=== PATIENT | male | born 1995 | race American Indian/Alaskan Native ===

== ENCOUNTER 2019-10-14 23:41 | Emergency (ER) | payer OTHER ==
[2019-10-14 23:49] VITALS: BP 126/80
--- NOTE | 2019-10-15 02:42 | Ultrasound Report ---
ULTRASOUND SCROTUM INDICATION: right testicle pain. COMPARISON None available. FINDINGS: RIGHT TESTICLE: Normal in size and appearance with expected color flow, measuring 4.2 x 2.2 x 3.0 cm. RIGHT EPIDIDYMIS: A subcentimeter cyst is noted without an additional significant abnormality. LEFT TESTICLE: Normal in size and appearance with expected color flow, measuring 4.2 x 2.3 x 3.0 cm. LEFT EPIDIDYMIS: A subcentimeter cyst is noted without an additional significant abnormality. HYDROCELE: None seen. VARICOCELE: None seen. ADDITIONAL FINDINGS: None. IMPRESSION: 1. No acute sonographic abnormality of the scrotum. Signer Name: Mark Hills MD Signed: 10/15/2019 2:37 AM Workstation Name: [email or web address]
[2019-10-15 03:55] LABS: Bilirubin,Urine NEG (Negative); Blood,Urine NEG (Negative); Color,Urine Straw (Yellow); Protein,Urine <15 mg/dL mg/dL (Negative); Urobilinogen,Urine < 2.0 mg/dL (<2.0); WBC,Urine < 1.0 /HPF (0.0-6.0)
[2019-10-15] MEDS ORDERED: traMADol 50 MG TAB PO ONE (04:18)
[2019-10-15] MEDS ORDERED: levoFLOXacin 500 MG TAB PO ONE (04:18)
[2019-10-15] MEDS ORDERED: ACETAMINOPHEN 500 MG TAB PO ONE (04:18)
[2019-10-15] MEDS ORDERED: ONDANSETRON 4 MG ODT TAB PO ONE (04:19)
[2019-10-15] MEDS ORDERED: LIDOCAINE-MPF (1%) 10 MG/1 ML VIAL 5 ML INFILTRATI ONE (05:43)
--- NOTE | 2019-10-15 05:44 | Emergency Department Report ---
ED Male HPI - General Chief complaint: Urogenital-Male Stated complaint: THROBBING TESTICULAR PAIN, LOWER ABDOMINAL PAIN Source: patient Mode of arrival: Ambulatory Limitations: No Limitations - History of Present Illness Initial comments: Patient is a 24-year-old -[place] male with no past medical history who presents to the ED with complaint of acute onset persistent nontraumatic severe right testicle pain for the last 4 hours. Patient denies dysuria, urinary frequency and urgency, penile discharge, traumatic injury, heavy lifting, swelling or the scrotum, fever, chills, nausea, vomiting, hematuria, or fall. MD Complaint: testicle pain (right) -: Sudden, hour(s) (4) Location: right testicle Radiation: none Severity: moderate Severity scale (0 -10): 6 Quality: aching, sharp Consistency: constant Improves with: none Worsens with: palpation, movement denies other symptoms. denies: discharge, swelling, mass, rash, urinary retention, blood in urine, dysuria, fever, nausea/vomiting, incontinence, other - Related Data Sexually active: Yes Previous Rx's Medication Instructions Recorded Last Taken Type Ciprofloxacin HCl [Ciprofloxacin 500 mg PO Q12HR #20 tab 10/15/19 Unknown Rx TAB] DOXYCYCLINE Hyclate [Vibramycin 100 mg PO Q12HR #20 capsule 10/15/19 Unknown Rx CAP] Ketorolac [Toradol] 10 mg PO Q8H PRN #20 tablet 10/15/19 Unknown Rx Allergies Allergy/AdvReac Type Severity Reaction Status Date / Time No Known Allergies Allergy Unverified 10/15/19 01:29 ED Review of Systems ROS: Stated complaint: THROBBING TESTICULAR PAIN, LOWER ABDOMINAL PAIN Other details as noted in HPI Constitutional: denies: chills, fever Eyes: denies: eye pain, eye discharge, vision change ENT: denies: ear pain, throat pain Respiratory: denies: cough, shortness of breath, wheezing Cardiovascular: denies: chest pain, palpitations Endocrine: no symptoms reported Gastrointestinal: denies: abdominal pain, nausea, diarrhea Genitourinary: testicular pain (right). denies: urgency, dysuria Musculoskeletal: denies: back pain, joint swelling, arthralgia Skin: denies: rash, lesions Neurological: denies: headache, weakness, paresthesias Psychiatric: denies: anxiety, depression Hematological/Lymphatic: denies: easy bleeding, easy bruising ED Past Medical Hx - Past Medical History Previous Medical History?: No - Surgical History Past Surgical History?: No - Social History Smoking Status: Never Smoker Substance Use Type: None - Medications Home Medications: Home Medications Medication Instructions Recorded Confirmed Last Taken Type Ciprofloxacin HCl [Ciprofloxacin 500 mg PO Q12HR #20 tab 10/15/19 Unknown Rx TAB] DOXYCYCLINE Hyclate [Vibramycin 100 mg PO Q12HR #20 capsule 10/15/19 Unknown Rx CAP] Ketorolac [Toradol] 10 mg PO Q8H PRN #20 tablet 10/15/19 Unknown Rx ED Physical Exam - General Limitations: No Limitations General appearance: alert, in no apparent distress - Head Head exam: Present: atraumatic, normocephalic, normal inspection - Eye Eye exam: Present: normal appearance, PERRL, EOMI - ENT ENT exam: Present: normal exam, normal orophraynx, mucous membranes moist, TM's normal bilaterally, normal external ear exam - Neck Neck exam: Present: normal inspection, full ROM - Respiratory Respiratory exam: Present: normal lung sounds bilaterally. Absent: respiratory distress, wheezes, rhonchi, chest wall tenderness, accessory muscle use, decreased breath sounds - Cardiovascular Cardiovascular Exam: Present: regular rate, normal rhythm, normal heart sounds. Absent: systolic murmur, diastolic murmur, rubs, gallop - GI/Abdominal GI/Abdominal exam: Present: soft, normal bowel sounds. Absent: tenderness, guarding, rebound, hyperactive bowel sounds, hypoactive bowel sounds, organomegaly - Rectal Rectal exam: Present: deferred - exam: Present: testicular tenderness (right), circumcision. 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 Absent: erythema, swelling, lesions, lacerations, ecchymosis, bleeding - Extremities Exam Extremities exam: Present: normal inspection, full ROM, normal capillary refill - Back Exam Back exam: Present: normal inspection, full ROM. Absent: tenderness - Neurological Exam Neurological exam: Present: alert, oriented X3, CN II-XII intact, normal gait, reflexes normal - Psychiatric Psychiatric exam: Present: normal affect, normal mood - Skin Skin exam: Present: warm, dry, intact, normal color. Absent: rash ED Course Vital Signs 10/14/19 23:47 Temperature 98.4 F Pulse Rate 71 Respiratory 18 Rate Blood Pressure 126/80 O2 Sat by Pulse 96 Oximetry ED Medical Decision Making - Radiology Data Radiology results: report reviewed, image reviewed Findings [facility] [address] [place] [address] Ultrasound Report Signed Patient: ROSALIO HDEZ MR#: [id number] : 1995 Acct:[id number] Age/Sex: 24 / M ADM Date: 10/14/19 Loc: ED Attending Dr: Ordering Physician: MICHELLE TAVERAS Date of Service: 10/15/19 Procedure(s): US testicular doppler comp Accession Number(s): [id number] cc: MICHELLE TAVERAS ULTRASOUND SCROTUM INDICATION: right testicle pain. COMPARISON None available. FINDINGS: RIGHT TESTICLE: Normal in size and appearance with expected color flow, measuring 4.2 x 2.2 x 3.0 cm. RIGHT EPIDIDYMIS: A subcentimeter cyst is noted without an additional significant abnormality. LEFT TESTICLE: Normal in size and appearance with expected color flow, measuring 4.2 x 2.3 x 3.0 cm. LEFT EPIDIDYMIS: A subcentimeter cyst is noted without an additional significant abnormality. HYDROCELE: None seen. VARICOCELE: None seen. ADDITIONAL FINDINGS: None. IMPRESSION: 1. No acute sonographic abnormality of the scrotum. Signer Name: Mark Hills MD Signed: 10/15/2019 2:37 AM Workstation Name: [id number] Transcribed By: [place] Dictated By: Mark Hills MD Electronically Authenticated By: Mark Hills MD Signed Date/Time: 10/15/19236 DD/ 1 TD/TT: - Medical Decision Making This is a 24-year-old male who presented to the ED with complaint of acute onset nontraumatic right testicle pain. In the ED, patient is alert and oriented 3 and is not in distress. Urinalyses is nonactionable, no hematuria or white blood cells. Testicular and scrotal ultrasound shows no acute sonographic abnormality of the scrotum. Patient was treated for pain in the ED and on reevaluation, patient's pain is well controlled medications. Patient was also given empirical treatment in the ED for suspected STD after course of epididymitis or orchitis. Patient was discharged home on pain medication and antibiotics and was advised to follow-up with his primary care physician in 7-10 days for reevaluation or return to the ED immediately if symptoms get worse. - Differential Diagnosis testicular torsion; Epididymitis; orchitis; UTI; STD Critical care attestation.: If time is entered above; I have spent that time in minutes in the direct care of this critically ill patient, excluding procedure time. ED Disposition Clinical Impression: Right testicular pain, Acute epididymo-orchitis Disposition: TO HOME OR SELFCARE Is pt being admited?: No Does the pt Need Aspirin: No Condition: Stable Instructions: Epididymitis (ED), Epididymo-orchitis (ED), Testicle Pain (ED) Additional Instructions: Take medication with food, drink plenty of fluids and follow-up with your primary care physician in 5-7 days for reevaluation. Return to the ED immediately if symptoms get worse. Prescriptions: Ciprofloxacin HCl [Ciprofloxacin TAB] 500 mg PO Q12HR #20 tab Ketorolac [Toradol] 10 mg PO Q8H PRN #20 tablet PRN Reason: Pain DOXYCYCLINE Hyclate [Vibramycin CAP] 100 mg PO Q12HR #20 capsule Referrals: [facility] [Outside] - 3-5 Days Forms: STI Treatment and Prevention Time of Disposition: 05:41 Print Language: NIGERIAN
== END 2019-10-15 07:06 | disposition home or self-care (01) ==
LOC: ED 23:41
DX: N45.3 Epididymo-orchitis (principal); Z79.899 Other long term (current) drug therapy
CPT/HCPCS: 81001; 93975; 96372; 99284; J0696; Q0162